=== PATIENT | female | born 1965 | race Caucasian/White ===

== ENCOUNTER 2023-08-30 12:48 | Outpatient (CLI) | payer BC, SELFPAY ==
--- NOTE | ~2023-08-30 | MR_ITS ---
EXAMINATION: MR knee LT wo con DATE: 08/30/2023 13:35 INDICATION: Anterior and medial left knee pain and swelling TECHNIQUE: Magnetic resonance imaging (MRI) of the left knee was performed without intravenous contra st. Sequences included coronal PD-weighted FSE, coronal PD-weighted FS FSE, sagittal T2-weighted FSE , sagittal PD-weighted FS FSE and axial PD weighted fat saturated FSE. COMPARISON: None. FINDINGS: Medial compartment: Complex tear at the body and posterior horn of the medial meniscus with decreased size and truncation along the inner free edge of the posterior horn and meniscal flap displaced into the inferior gutter along the posterior body of the meniscus. There is heterogeneous cartilage signal suggesting mild pa rtial-thickness fissuring along the lateral margin of the anterior weightbearing medial femoral condy le. Lateral compartment: Lateral meniscus is normal. Articular cartilage is normal. Patellofemoral compartment: Sagittal oriented partial-thickness chondral fissure involving greater than 50% of the cartilage thic kness at the lateral patellar facet. Deep chondral ulceration with minimal underlying cortical irregu larity at the inferior aspect of the inferior aspect of the medial trochlea. Ligaments and tendons: Anterior and posterior cruciate ligaments are normal. The medial collateral ligament and fibular shani ateral ligament complex are normal. The extensor mechanism is normal. The visualized medial and later al hamstring tendons as well as the iliotibial band are normal. Fluid: Physiologic amount of fluid in the joint space. No loose osteochondral bodies identified. Small Peace 's cyst. Osseous/other: Minimal marrow edema along the posterior medial rim of the medial tibial plateau which may relate to altered stress distribution resulting from the displaced meniscal flap. Bone marrow signal is otherwi se normal with no fracture or pathologic marrow replacing process. IMPRESSION: 1. Complex tear of the posterior horn and posterior body of the medial meniscus with displaced menisc al flap. 2. Mild osteoarthritis with small regions of moderate grade chondromalacia at the weightbearing media l femoral condyle and the lateral patellar facet and small regions of high-grade chondral malacia at the inferior aspect of the medial trochlea. 3. Small Peace's cyst. Reviewed, dictated and finalized at location A. IMPRESSION: 1. Complex tear of the posterior horn and posterior body of the medial meniscus with displaced meniscal flap. 2. Mild osteoarthritis with small regions of moderate grade chondromalacia at t he weightbearing medial femoral condyle and the lateral patellar facet and smal l regions of high-grade chondral malacia at the inferior aspect of the medial t rochlea. 3. Small Peace's cyst.
== END 2023-08-30 12:49 ==
LOC: GOSHIMG 12:52
PROVIDERS: PCP Family Medicine; Visit Provider Orthopaedic Surgery
DX: M71.22 Synovial cyst of popliteal space [Baker], left knee (principal); S83.232A Complex tear of medial meniscus, current injury, left knee, initial encounter; X58.XXXA Exposure to other specified factors, initial encounter; M17.12 Unilateral primary osteoarthritis, left knee
CPT/HCPCS: 73721